=== PATIENT | male | born 1985 | race African-American/Black ===

== ENCOUNTER 2021-08-15 09:30 | Emergency (ER) | payer MEDICAID ==
[~2021-08-15] VITALS: Ht 172.7 cm; Wt 72.5 kg
[2021-08-15 09:32] VITALS: BP 135/96
--- OUTSIDE RECORDS SUMMARY | 2021-08-15 10:32 | CCD ---
Author Author [facility] Address Unknown Phone Unavailable Support Name Relationship Address [place] [address] [place] [address] Re-disclosure Warning The records that you are about to access may contain information from federally-assisted alcohol or drug abuse programs. If such information is present, then the following federally mandated warning applies: This information has been disclosed to you from records protected by federal confidentiality rules (42 CFR part 2). The federal rules prohibit you from making any further disclosure of this information unless further disclosure is expressly permitted by the written consent of the person to whom it pertains or as otherwise permitted by 42 CFR part 2. A general authorization for the release of medical or other information is NOT sufficient for this purpose. The Federal rules restrict any use of the information to criminally investigate or prosecute any alcohol or drug abuse patient.The records that you are about to access may contain highly sensitive health information, the redisclosure of which is protected by Article 27-F of the [facility] Public Health law. If you continue you may have access to information: Regarding HIV / AIDS; Provided by facilities licensed or operated by the [facility] Office of Mental Health; or Provided by the [facility] Office for People With Developmental Disabilities. If such information is present, then the following [facility] mandated warning applies: This information has been disclosed to you from confidential records which are protected by state law. State law prohibits you from making any further disclosure of this information without the specific written consent of the person to whom it pertains, or as otherwise permitted by law. Any unauthorized further disclosure in violation of state law may result in a fine or nursing home sentence or both. A general authorization for the release of medical or other information is NOT sufficient authorization for further disc losure. Medications No Information Insurance Providers Payer name Policy type / Coverage type Policy ID Covered constitution party ID Covered constitution party's relationship to brooke Policy Brooke Plan Information [facility] [id number] [id number] Problems, Conditions, and Diagnoses No Information Surgeries/Procedures No Information Results No Information Social History No Information
[2021-08-15] MEDS ORDERED: GI COCKTAIL 50ML BTL(HYOSCYAMINE/MAALOX/LIDOCAINE VISCOUS)(1:3:1) PO ONE (11:20)
[2021-08-15] MEDS ORDERED: PANTOPRAZOLE 40MG VIAL (C9113 PER 1) IV ONE (11:20)
[2021-08-15] MEDS ORDERED: SUCRALFATE 1 GM TAB PO ONE (11:20)
--- NOTE | 2021-08-15 11:48 | REP ---
INDICATION: epigastric pain x 2 days. COMPARISON: None. FINDINGS: Supine and upright views of the abdomen show the intestinal gas pattern to be nonspecific. Gas and stool is seen throughout the colon within the rectosigmoid region. The organ silhouettes insofar as delineated appear unremarkable. There are possible calcifications seen superimposed over the right nephric silhouette. No abdominal calcific densities are seen within the abdomen or pelvis. The accompanying single frontal view of the chest shows no free subdiaphragmatic air, cardiomegaly, infiltrates or effusions. IMPRESSION: Nonspecific intestinal gas pattern. Possible right nephroliths. <Electronically signed by Sidney Garcia > 08/15/21 [id number]
[2021-08-15 11:54] LABS: BASO % 0.3 % (0.0-1.0); EOS # 0.2 10^3/uL (0.0-0.5); EOS % 2.6 % (0.0-3.0); HEMATOCRIT 44.9 % (42.0-52.0); HEMOGLOBIN 15.1 g/dl (13.5-17.5); LYMPH # 1.8 10^3/uL (1.5-5.0); LYMPH % 29.9 % (24.0-44.0); MEAN CORPUSCULAR HEMOGLOBIN 30.1 pg (27.0-33.0); MEAN CORPUSCULAR HGB CONC 33.6 g/dl (32.0-36.5); MEAN CORPUSCULAR VOLUME 89.4 fl (80.0-96.0); MONO # 0.5 10^3/uL (0.0-0.8); MONO % 8.2 % (2.0-8.0); NEUTROPHILS # 3.4 10^3/uL (1.5-8.5); NEUTROPHILS % 58.8 % (36.0-66.0); PLATELET COUNT, AUTOMATED 336 10^3/uL (150-450); RED BLOOD COUNT 5.02 10^6/uL (4.30-6.10); WHITE BLOOD COUNT 5.9 10^3/uL (4.0-10.0)
--- NOTE | 2021-08-15 12:15 | REP ---
INDICATION: epigastric pain x 2 days. COMPARISON: None. TECHNIQUE: Limited ultrasound evaluation of the abdomen was performed. FINDINGS: The liver is normal in size and echogenicity. The gallbladder is partially evacuated. The gallbladder wall measures 2 mm in thickness. Negative sonographic Shannon sign. Common bile duct measures 3 mm in diameter. The pancreas is unremarkable. The right kidney measures 9.3 x 5.4 x 4.4 cm and contains multiple cortical cysts as follows: Upper pole, 11 x 10 x 8 mm; upper pole, 11 x 10 x 10 mm; lower pole, 16 x 12 x 9 mm. IMPRESSION: 1. Limited evaluation of the gallbladder as the gallbladder was partially evacuated. 2. Benign cortical cysts, right kidney. <Electronically signed by Nazario Wells > 08/15/21 1216
[2021-08-15 12:27] LABS: ALBUMIN 4.3 GM/DL (3.2-5.2); ALT/SGPT 94 U/L (12-78); BILIRUBIN,DIRECT < 0.1 MG/DL (0.0-0.2); BILIRUBIN,TOTAL 0.3 MG/DL (0.2-1.0); BLOOD UREA NITROGEN 15 MG/DL (7-18); CARBON DIOXIDE LEVEL 26 MEQ/L (21-32); CHLORIDE LEVEL 108 MEQ/L (98-107); CREATININE FOR GFR 1.04 MG/DL (0.70-1.30); GLOMERULAR FILTRATION RATE > 60.0 (>60); GLUCOSE, FASTING 99 MG/DL (70-100); LIPASE 205 U/L (73-393); POTASSIUM SERUM 4.1 MEQ/L (3.5-5.1); SODIUM LEVEL 140 MEQ/L (136-145); TOTAL PROTEIN 7.5 GM/DL (6.4-8.2)
[2021-08-15] MEDS ORDERED: metroNIDAZOLE (FLAGYL) 500MG TABLET PO ONE (13:30)
[2021-08-15] MEDS ORDERED: OMEP40CA4 PO (13:31)
[2021-08-15 13:44] LABS: GC DNA AMPLIFICATION NEGATIVE (NEGATIVE)
== END 2021-08-15 14:05 | disposition home or self-care (01) ==
LOC: M ED 09:30
DX: R10.13 Epigastric pain (principal); R19.7 Diarrhea, unspecified; Z20.2 Contact with and (suspected) exposure to infections with a predominantly sexual mode of transmission; I10 Essential (primary) hypertension
CPT/HCPCS: 74021; 76705; 80048; 80076; 81001; 83690; 85025; 87491; 87591; 87661; 96374; 99283; C9113

== ENCOUNTER 2021-10-04 20:07 | Emergency (ER) | payer MEDICAID ==
[~2021-10-04] VITALS: Ht 172.7 cm; Wt 72.5 kg
[~2021-10-04 20:07] MED LIST: OMEP40CA4 PO
[2021-10-05 00:42] LABS: BASO % 0.4 % (0.0-1.0); EOS % 0.6 % (0.0-3.0); HEMATOCRIT 47.5 % (42.0-52.0); HEMOGLOBIN 15.6 g/dl (13.5-17.5); LYMPH # 0.8 10^3/uL (1.5-5.0); LYMPH % 15.3 % (24.0-44.0); MEAN CORPUSCULAR HEMOGLOBIN 29.3 pg (27.0-33.0); MEAN CORPUSCULAR HGB CONC 32.8 g/dl (32.0-36.5); MEAN CORPUSCULAR VOLUME 89.3 fl (80.0-96.0); MONO # 0.8 10^3/uL (0.0-0.8); MONO % 15.6 % (2.0-8.0); NEUTROPHILS # 3.6 10^3/uL (1.5-8.5); NEUTROPHILS % 67.9 % (36.0-66.0); PLATELET COUNT, AUTOMATED 199 10^3/uL (150-450); RED BLOOD COUNT 5.32 10^6/uL (4.30-6.10); WHITE BLOOD COUNT 5.2 10^3/uL (4.0-10.0)
[2021-10-05 01:11] LABS: ALBUMIN 4.5 GM/DL (3.2-5.2); ALT/SGPT 54 U/L (12-78); BILIRUBIN,DIRECT 0.2 MG/DL (0.0-0.2); BILIRUBIN,TOTAL 0.5 MG/DL (0.2-1.0); BLOOD UREA NITROGEN 11 MG/DL (7-18); CALCIUM LEVEL 9.8 MG/DL (8.5-10.1); CARBON DIOXIDE LEVEL 28 MEQ/L (21-32); CHLORIDE LEVEL 104 MEQ/L (98-107); CREATININE FOR GFR 1.16 MG/DL (0.70-1.30); GLOMERULAR FILTRATION RATE > 60.0 (>60); GLUCOSE, FASTING 99 MG/DL (70-100); LIPASE 124 U/L (73-393); SODIUM LEVEL 139 MEQ/L (136-145); TOTAL PROTEIN 7.9 GM/DL (6.4-8.2)
[2021-10-05] MEDS ORDERED: ACETAMINOPHEN 325 MG TAB PO ONE (06:15)
[2021-10-05 06:22] VITALS: BP 129/92
== END 2021-10-05 09:12 | disposition home or self-care (01) ==
LOC: M ED 20:07
DX: N20.0 Calculus of kidney (principal); N28.1 Cyst of kidney, acquired; J12.89 Other viral pneumonia; I10 Essential (primary) hypertension; J45.909 Unspecified asthma, uncomplicated; K21.9 Gastro-esophageal reflux disease without esophagitis; Z79.899 Other long term (current) drug therapy

== ENCOUNTER → 2021-11-20 | Outpatient (CLI) | payer MEDICAID, OTHER | LOC: M PLALAB 09:38 | PROVIDERS: ATTEND Physician Assistant | DX: N20.0 Calculus of kidney (principal) ==

== ENCOUNTER 2021-12-20 22:28 | Emergency (ER) | payer OTHER ==
[~2021-12-20] VITALS: Ht 172.7 cm; Wt 68.2 kg
[2021-12-21 02:10] VITALS: BP 124/72
== END 2021-12-21 04:00 | disposition home or self-care (01) ==
LOC: M ED 22:28
DX: R53.81 Other malaise (principal); R00.1 Bradycardia, unspecified

== ENCOUNTER 2022-02-25 08:05 | Emergency (ER) | payer BC, OTHER ==
[~2022-02-25] VITALS: Ht 172.7 cm; Wt 68.2 kg
[2022-02-25 08:06] VITALS: BP 123/86
[2022-02-25] MEDS ORDERED: ONDA4TAB6 PO (09:12)
== END 2022-02-25 09:20 | disposition home or self-care (01) ==
LOC: M ED 08:05
DX: J02.9 Acute pharyngitis, unspecified (principal); I10 Essential (primary) hypertension; J45.909 Unspecified asthma, uncomplicated; K21.9 Gastro-esophageal reflux disease without esophagitis

== ENCOUNTER → 2022-03-20 | Outpatient (CLI) | payer BC ==
[~2022-03-20] MED LIST changes: +ONDA4TAB6 PO
== END ==
LOC: M RAD 13:26
PROVIDERS: ATTEND Physician Assistant
DX: N20.0 Calculus of kidney (principal)

== ENCOUNTER 2022-06-11 07:00 | Emergency (ER) | payer BC ==
[~2022-06-11] VITALS: Ht 172.7 cm; Wt 68.2 kg
[2022-06-11] MEDS ORDERED: IBUPROFEN 800 MG TAB PO ONE (07:25)
[2022-06-11 09:23] VITALS: BP 141/107
== END 2022-06-11 09:15 | disposition home or self-care (01) ==
LOC: M ED 07:00
DX: S02.2XXA Fracture of nasal bones, initial encounter for closed fracture (principal); Y04.8XXA Assault by other bodily force, initial encounter; Y92.511 Restaurant or cafe as the place of occurrence of the external cause; I10 Essential (primary) hypertension; J45.909 Unspecified asthma, uncomplicated; K21.9 Gastro-esophageal reflux disease without esophagitis

== ENCOUNTER → 2022-08-05 | Outpatient (REF) | payer BC ==
[2022-08-05 15:15] LABS: GC DNA AMPLIFICATION NEGATIVE (NEGATIVE)
== END ==
LOC: M LAB REF 12:52
PROVIDERS: ATTEND Physician Assistant Medical
DX: Z11.3 Encounter for screening for infections with a predominantly sexual mode of transmission (principal)

== ENCOUNTER → 2022-08-14 | Outpatient (REF) | payer BC ==
[2022-08-14 18:20] LABS: GC DNA AMPLIFICATION NEGATIVE (NEGATIVE)
== END ==
LOC: M LAB REF 16:31
PROVIDERS: ATTEND Physician Assistant
DX: Z11.3 Encounter for screening for infections with a predominantly sexual mode of transmission (principal)

== ENCOUNTER 2022-08-31 05:45 | Emergency (ER) | payer BC ==
[~2022-08-31] VITALS: Ht 172.7 cm; Wt 71.1 kg
[2022-08-31 05:45] VITALS: BP 141/98
== END 2022-08-31 08:53 | disposition home or self-care (01) ==
LOC: M ED 05:45
DX: K52.9 Noninfective gastroenteritis and colitis, unspecified (principal); I10 Essential (primary) hypertension; J45.909 Unspecified asthma, uncomplicated; K21.9 Gastro-esophageal reflux disease without esophagitis; Z87.442 Personal history of urinary calculi

== ENCOUNTER → 2022-09-26 | Outpatient (REF) | payer BC ==
[~2022-09-26] MED LIST changes: +BENZ200C70 PO; +MUCI1TAB16 PO
[2022-09-27 10:53] LABS: GC DNA AMPLIFICATION NEGATIVE (NEGATIVE)
== END ==
LOC: M LAB REF 08:14
PROVIDERS: ATTEND Student in an Organized Health Care Education/Training Program
DX: R30.0 Dysuria (principal)

== ENCOUNTER 2022-09-30 03:30 | Emergency (ER) | payer BC ==
[~2022-09-30] VITALS: Ht 172.7 cm; Wt 68.2 kg
[2022-09-30 03:30] VITALS: BP 136/87
[~2022-09-30 03:30] MED LIST changes: -BENZ200C70 PO; -MUCI1TAB16 PO
[2022-09-30] MEDS ORDERED: MUCI1TAB16 PO (09:35)
[2022-09-30] MEDS ORDERED: BENZ200C70 PO (09:35)
[2022-09-30 11:23] LABS: GC DNA AMPLIFICATION NEGATIVE (NEGATIVE)
== END 2022-09-30 09:45 | disposition home or self-care (01) ==
LOC: M ED 03:30
DX: U07.1 COVID-19 (principal); R30.0 Dysuria; I10 Essential (primary) hypertension; J45.909 Unspecified asthma, uncomplicated; K21.9 Gastro-esophageal reflux disease without esophagitis; Z79.899 Other long term (current) drug therapy

== ENCOUNTER → 2022-10-30 | Outpatient (CLI) | payer BC ==
[~2022-10-30] MED LIST changes: +BENZ200C70 PO; +MUCI1TAB16 PO
== END ==
LOC: M PLAIMG 08:50
PROVIDERS: ATTEND Physician Assistant
DX: N23 Unspecified renal colic (principal)

== ENCOUNTER 2022-12-04 16:33 | Emergency (ER) | payer BC ==
[~2022-12-04] VITALS: Ht 172.7 cm; Wt 77.1 kg
[2022-12-04 16:34] VITALS: BP 133/85
[2022-12-04 19:05] LABS: GC DNA AMPLIFICATION NEGATIVE (NEGATIVE)
[2022-12-04] MEDS ORDERED: AMOX875T2 PO (20:59)
== END 2022-12-04 21:40 | disposition home or self-care (01) ==
LOC: M ED 16:33
DX: J01.90 Acute sinusitis, unspecified (principal); E86.0 Dehydration; Z87.442 Personal history of urinary calculi

== ENCOUNTER → 2022-12-11 | Outpatient (REF) | payer BC, MEDICAID ==
[~2022-12-11] MED LIST changes: +AMOX875T2 PO
[2022-12-11 14:46] LABS: ALBUMIN 3.9 G/DL (3.2-5.2); ALKALINE PHOSPHATASE 75 U/L (46-116); ALT/SGPT 36 U/L (7.0-40); AST/SGOT 42 U/L (<34); BILIRUBIN,TOTAL 0.3 MG/DL (0.3-1.2); BLOOD UREA NITROGEN 17 MG/DL (9-23); CALCIUM LEVEL 9.6 MG/DL (8.5-10.1); CARBON DIOXIDE LEVEL 28 MMOL/L (20-31); CHLORIDE LEVEL 105 MMOL/L (98-107); CHOLESTEROL LEVEL 109 MG/DL (<200); CHOLESTEROL RISK RATIO 2.85 (<5); CREATININE FOR GFR 1.09 MG/DL (0.70-1.30); GLOMERULAR FILTRATION RATE > 60.0 (>60); GLUCOSE, FASTING 90 MG/DL (60-100); HDL CHOLESTEROL 38.2 MG/DL (>40); NON-HDL-C 71 MG/DL; POTASSIUM SERUM 4.5 MMOL/L (3.5-5.1); SODIUM LEVEL 138 MMOL/L (136-145); THYROID STIMULATING HORMONE 1.438 uIU/ML (0.55-4.78)
[2022-12-11 15:41] LABS: HEMOGLOBIN A1c 5.7 % (4.0-6.0)
[2022-12-11 18:46] LABS: LDL CHOLESTEROL 61.2 MG/DL (<100); TRIGLYCERIDES LEVEL 48 MG/DL (<150)
== END ==
LOC: M LAB REF 13:48
PROVIDERS: ATTEND Family Medicine Addiction Medicine
DX: Z13.228 Encounter for screening for other metabolic disorders (principal)

== ENCOUNTER 2023-01-27 02:52 | Emergency (ER) | payer BC, MEDICAID ==
[~2023-01-27] VITALS: Ht 172.7 cm; Wt 73.2 kg
[2023-01-27] MEDS ORDERED: IBUP80TA PO (05:55)
[2023-01-27 06:05] VITALS: BP 138/86
== END 2023-01-27 06:07 | disposition home or self-care (01) ==
LOC: M ED 02:52
DX: S90.01XA Contusion of right ankle, initial encounter (principal); W23.0XXA Caught, crushed, jammed, or pinched between moving objects, initial encounter; Y99.0 Civilian activity done for income or pay

== ENCOUNTER → 2023-01-28 | Outpatient (CLI) | payer BC ==
[~2023-01-28] MED LIST changes: +IBUP80TA PO
== END ==
LOC: M PLAIMG 10:14
PROVIDERS: ATTEND Physician Assistant
DX: N20.0 Calculus of kidney (principal)

== ENCOUNTER 2023-02-13 19:16 | Observation (INO) | payer OTHER, BC ==
[~2023-02-13] VITALS: Ht 172.7 cm; Wt 71.5 kg
[2023-02-13] MEDS ORDERED: NS 1,000 ML IV ONE (19:45)
[2023-02-13] MEDS ORDERED: MORPHINE 4 MG/ML 1ML VIAL IV PRN ×2 (19:45→23:00)
[2023-02-13] MEDS ORDERED: ISOVUE-370 76% 100ML VIAL As Ordered ONE (19:50)
[2023-02-13] MEDS ORDERED: ONDANSETRON 4MG 2ML VIAL IV ONE (19:50)
[2023-02-13 20:12] LABS: BASO % 0.7 % (0.0-1.0); EOS # 0.2 10^3/uL (0.0-0.5); EOS % 5.5 % (0.0-3.0); HEMATOCRIT 44.5 % (42.0-52.0); HEMOGLOBIN 14.6 g/dl (13.5-17.5); LYMPH # 1.5 10^3/uL (1.5-5.0); LYMPH % 38.2 % (24.0-44.0); MEAN CORPUSCULAR HEMOGLOBIN 29.6 pg (27.0-33.0); MEAN CORPUSCULAR HGB CONC 32.8 g/dl (32.0-36.5); MEAN CORPUSCULAR VOLUME 90.1 fl (80.0-96.0); MONO # 0.4 10^3/uL (0.0-0.8); MONO % 8.7 % (2.0-8.0); NEUTROPHILS # 1.9 10^3/uL (1.5-8.5); NEUTROPHILS % 46.7 % (36.0-66.0); PLATELET COUNT, AUTOMATED 295 10^3/uL (150-450); RED BLOOD COUNT 4.94 10^6/uL (4.30-6.10)
[2023-02-13 20:22] LABS: INR 0.95; PROTHROMBIN TIME 12.9 SECONDS (12.5-14.5)
[2023-02-13 20:23] LABS: PARTIAL THROMBOPLASTIN TIME 30.3 SECONDS (24.8-34.2)
[2023-02-13 20:36] LABS: ETHYL ALCOHOL (ETHANOL) < 0.003 % (0.000-0.010)
[2023-02-13 20:37] LABS: AMYLASE 126 U/L (30-118); CPK CREATINE PHOSPHOKINASE 943 U/L (46-171); MB/CK RELATIVE INDEX 0.84 (< OR =4)
[2023-02-13 20:39] LABS: ALBUMIN 3.9 G/DL (3.2-5.2); ALKALINE PHOSPHATASE 81 U/L (46-116); ALT/SGPT 38 U/L (7.0-40); AST/SGOT 38 U/L (<34); BILIRUBIN,DIRECT 0.2 MG/DL (<0.4); TOTAL PROTEIN 6.7 G/DL (5.7-8.2)
[2023-02-13 20:44] LABS: RSV AMPLIFICATION NEGATIVE (NEGATIVE)
[2023-02-13 20:53] LABS: BILIRUBIN,TOTAL 0.4 MG/DL (0.3-1.2); LIPASE 55 U/L (12-53)
[2023-02-13 20:59] LABS: AMPHETAMINES LEVEL URINE NEGATIVE (NEGATIVE); BARBITURATES URINE NEGATIVE (NEGATIVE); BENZODIAZEPINES URINE NEGATIVE (NEGATIVE); COCAINE METABOLITE URINE NEGATIVE (NEGATIVE); PHENCYCLIDINE URINE NEGATIVE (NEGATIVE)
[2023-02-13 21:00] LABS: METHADONE URINE NEGATIVE (NEGATIVE); OPIATES URINE NEGATIVE (NEGATIVE)
[2023-02-13 21:11] LABS: CANNABINOIDS URINE POSITIVE (NEGATIVE)
[2023-02-13 22:04] LABS: CK-MB VALUE MASS 6.7 NG/ML (<3.6)
[2023-02-13 22:06] LABS: MB/CK RELATIVE INDEX 0.78 (< OR =4)
[2023-02-13] MEDS ORDERED: ONDANSETRON 4MG TAB PO PRN (23:00)
[2023-02-13] MEDS ORDERED: MORPHINE 2 MG/ML 1ML VIAL IV PRN (23:00)
[2023-02-13] MEDS ORDERED: IBUP1TAB7 PO (23:56)
[2023-02-14] VITALS (23 sets, daily range): BP systolic 119–140; BP diastolic 54–100; O2SAT 97–99
[2023-02-14] MEDS ORDERED: HOME MED LIST COMPLETE! XX SCH
[2023-02-14] MEDS: KETOROLAC 30 MG/ML 1ML VIAL IV SCH ×5 (01:41→23:56)
[2023-02-14] MEDS: NS 1,000 ML IV SCH ×4 (02:00→18:36)
[2023-02-14] MEDS: MORPHINE 4 MG/ML 1ML VIAL IV PRN ×2 (02:57→09:45)
[2023-02-14 06:18] LABS: HEMATOCRIT 42.9 % (42.0-52.0); MEAN CORPUSCULAR HEMOGLOBIN 29.9 pg (27.0-33.0); MEAN CORPUSCULAR HGB CONC 32.6 g/dl (32.0-36.5); MEAN CORPUSCULAR VOLUME 91.5 fl (80.0-96.0); PLATELET COUNT, AUTOMATED 280 10^3/uL (150-450); RED BLOOD COUNT 4.69 10^6/uL (4.30-6.10); WHITE BLOOD COUNT 4.4 10^3/uL (4.0-10.0)
[2023-02-14 06:44] LABS: CK-MB VALUE MASS 3.9 NG/ML (<3.6)
[2023-02-14 06:52] LABS: MB/CK RELATIVE INDEX 0.63 (< OR =4)
[2023-02-14] MEDS ORDERED: PERCOCET 5MG/325MG TAB PO PRN (11:55)
[2023-02-14] MEDS: PERCOCET 5MG/325MG TAB PO PRN (14:48)
[2023-02-14] MEDS: DOCUSATE SODIUM 100MG CAPSULE PO SCH (20:16)
[2023-02-15] VITALS (10 sets, daily range): BP systolic 124–161; BP diastolic 78–92; O2SAT 99
[2023-02-15] MEDS: NS 1,000 ML IV SCH ×3 (01:49→16:23)
[2023-02-15] MEDS: KETOROLAC 30 MG/ML 1ML VIAL IV SCH (05:29)
[2023-02-15 06:59] LABS: MB/CK RELATIVE INDEX 0.71 (< OR =4)
[2023-02-15] MEDS: DOCUSATE SODIUM 100MG CAPSULE PO SCH ×2 (08:35→19:45)
[2023-02-15] MEDS: PERCOCET 5MG/325MG TAB PO PRN ×2 (08:37→19:46)
[2023-02-15] MEDS: IBUPROFEN 600MG TAB PO PRN ×2 (12:01→18:22)
[2023-02-16] MEDS: NS 1,000 ML IV SCH (00:31)
[2023-02-16 00:41] VITALS: BP 132/89
[2023-02-16 04:57] VITALS: BP 137/96
[2023-02-16] MEDS: IBUPROFEN 600MG TAB PO PRN (07:05)
[2023-02-16 07:37] VITALS: BP 140/62
[2023-02-16] MEDS: DOCUSATE SODIUM 100MG CAPSULE PO SCH (08:21)
[2023-02-17 19:07] LABS: CK 1 (BB) 0 % (0); CK 2 (MB) 0 % (0-3); CK 3 (MM) 100 % (97-100); CK MACRO I PERCENT 0 % (Not Observed); CK MACRO II PERCENT 0 % (Not Observed); CK TOTAL 630 U/L (49-439)
== END 2023-02-16 10:04 | disposition home or self-care (01) ==
LOC: M ED 19:16 → EDBD 19:16 → M ED INP 19:17 → M PCU 02-14 01:45
PROVIDERS: ADMIT Surgery; ATTEND Surgery
DX: S20.212A Contusion of left front wall of thorax, initial encounter (principal); S26.91XA Contusion of heart, unspecified with or without hemopericardium, initial encounter; R20.0 Anesthesia of skin; R74.8 Abnormal levels of other serum enzymes; R07.9 Chest pain, unspecified; V43.52XA Car driver injured in collision with other type car in traffic accident, initial encounter; Y92.410 Unspecified street and highway as the place of occurrence of the external cause; I45.10 Unspecified right bundle-branch block; Z87.442 Personal history of urinary calculi; Z91.013 Allergy to seafood
CPT/HCPCS: 36415; 70450; 70486; 71045; 71260; 72125; 72131; 73030; 73610; 74177; 80047; 80076; 80307; 82077; 82150; 82550; 82552; 82553; 83605; 83690; 84484; 85025; 85027; 85610; 85730; 86850; 86900; 86901; 87631; 93005; 93041; 93306; 94760; 96361; 96374; 96375; 96376; 99285; J1885; J2405; Q9967

== ENCOUNTER 2023-02-19 21:49 | Emergency (ER) | payer OTHER, BC ==
[~2023-02-19] VITALS: Ht 172.7 cm; Wt 71.7 kg
[~2023-02-19 21:49] MED LIST changes: +IBUP1TAB7 PO
[2023-02-19 22:45] VITALS: BP 149/93
[2023-02-19] MEDS ORDERED: CYCLOBENZAPRINE 5MG TABLET PO ONE (23:05)
[2023-02-19] MEDS ORDERED: CYCL-707 PO (23:06)
== END 2023-02-19 23:44 | disposition home or self-care (01) ==
LOC: M ED 21:49
DX: M79.10 Myalgia, unspecified site (principal); I10 Essential (primary) hypertension; Z87.442 Personal history of urinary calculi

== ENCOUNTER 2023-06-12 04:17 | Emergency (ER) | payer BC, OTHER ==
[~2023-06-12] VITALS: Ht 175.3 cm; Wt 70.9 kg
[~2023-06-12 04:17] MED LIST changes: +CYCL-707 PO
[2023-06-12 04:19] VITALS: BP 138/95; TEMP 98.6; O2SAT 98
[2023-06-12 05:28] LABS: RSV AMPLIFICATION NEGATIVE (NEGATIVE)
[2023-06-12 06:18] LABS: GC DNA AMPLIFICATION NEGATIVE (NEGATIVE)
[2023-06-12] MEDS ORDERED: MUCI600T31 PO (09:02)
[2023-06-12] MEDS ORDERED: BENZ200C70 PO (09:02)
== END 2023-06-12 09:00 | disposition home or self-care (01) ==
LOC: M ED 04:17
DX: J06.9 Acute upper respiratory infection, unspecified (principal); R30.0 Dysuria; J45.909 Unspecified asthma, uncomplicated; K21.9 Gastro-esophageal reflux disease without esophagitis; M54.50 Low back pain, unspecified; Z91.013 Allergy to seafood; Z79.899 Other long term (current) drug therapy

== ENCOUNTER → 2023-07-30 | Outpatient (CLI) | payer BC ==
[~2023-07-30] MED LIST changes: +MUCI600T31 PO; +PYRI1TAB5 PO
== END ==
LOC: M PLAIMG 11:10
PROVIDERS: ATTEND Physician Assistant
DX: N20.0 Calculus of kidney (principal)

== ENCOUNTER 2023-09-19 07:48 | Observation (INO) | payer OTHER, BC ==
[~2023-09-19] VITALS: Ht 175.3 cm; Wt 75.3 kg
[~2023-09-19 07:48] MED LIST changes: +ACET-842 PO
[2023-09-19] MEDS ORDERED: KETOROLAC 30 MG/ML 1ML VIAL IV ONE (08:10)
[2023-09-19] MEDS ORDERED: KETO10TAB PO (08:45)
[2023-09-19] MEDS ORDERED: OXYC-517 PO (08:45)
[2023-09-19 08:53] LABS: BASO % 0.2 % (0.0-1.0); EOS # 0.1 10^3/uL (0.0-0.5); HEMATOCRIT 42.4 % (42.0-52.0); HEMOGLOBIN 14.2 g/dl (13.5-17.5); LYMPH # 2.4 10^3/uL (1.5-5.0); LYMPH % 39.4 % (24.0-44.0); MEAN CORPUSCULAR HEMOGLOBIN 30.3 pg (27.0-33.0); MEAN CORPUSCULAR HGB CONC 33.5 g/dl (32.0-36.5); MEAN CORPUSCULAR VOLUME 90.6 fl (80.0-96.0); MONO # 0.5 10^3/uL (0.0-0.8); MONO % 8.7 % (2.0-8.0); NEUTROPHILS % 50.5 % (36.0-66.0); PLATELET COUNT, AUTOMATED 233 10^3/uL (150-450); RED BLOOD COUNT 4.68 10^6/uL (4.30-6.10)
[2023-09-19 09:20] LABS: CK-MB VALUE MASS 1.4 NG/ML (<3.6); LIPASE 48 U/L (12-53)
[2023-09-19 09:22] LABS: ALKALINE PHOSPHATASE 55 U/L (46-116); ALT/SGPT 34 U/L (7.0-40); AST/SGOT 33 U/L (<34); BILIRUBIN,DIRECT 0.2 MG/DL (<0.4); BILIRUBIN,TOTAL 0.6 MG/DL (0.3-1.2); BLOOD UREA NITROGEN 18 MG/DL (9-23); CALCIUM LEVEL 9.1 MG/DL (8.5-10.1); CARBON DIOXIDE LEVEL 25 MMOL/L (20-31); CHLORIDE LEVEL 107 MMOL/L (98-107); CREATININE FOR GFR 1.02 MG/DL (0.70-1.30); GLOMERULAR FILTRATION RATE > 60.0 (>60); GLUCOSE, FASTING 98 MG/DL (60-100); POTASSIUM SERUM 4.4 MMOL/L (3.5-5.1); SODIUM LEVEL 140 MMOL/L (136-145); TOTAL PROTEIN 6.9 G/DL (5.7-8.2)
[2023-09-19 09:23] LABS: THYROID STIMULATING HORMONE 2.612 uIU/ML (0.55-4.78)
[2023-09-19 09:29] LABS: METHADONE URINE NEGATIVE (NEGATIVE); OPIATES URINE NEGATIVE (NEGATIVE); PHENCYCLIDINE URINE NEGATIVE (NEGATIVE)
[2023-09-19 09:30] LABS: AMPHETAMINES LEVEL URINE NEGATIVE (NEGATIVE); BARBITURATES URINE NEGATIVE (NEGATIVE); BENZODIAZEPINES URINE NEGATIVE (NEGATIVE); COCAINE METABOLITE URINE NEGATIVE (NEGATIVE)
[2023-09-19] MEDS ORDERED: SUCRALFATE SUSP 1GM/10ML UD PO ONE (09:35)
[2023-09-19 09:43] LABS: INR 1.08; PROTHROMBIN TIME 13.7 SECONDS (12.5-14.5)
[2023-09-19 09:44] LABS: CPK CREATINE PHOSPHOKINASE 739 U/L (46-171); MB/CK RELATIVE INDEX 0.18 (< OR =4)
[2023-09-19 09:44] LABS: CANNABINOIDS URINE POSITIVE (NEGATIVE)
[2023-09-19] MEDS ORDERED: ISOVUE-370 76% 100ML VIAL As Ordered ONE (09:44)
[2023-09-19] MEDS ORDERED: ASPIRIN 81MG CHEW TABLET PO ONE (09:45)
[2023-09-19 10:06] LABS: CK-MB VALUE MASS 1.2 NG/ML (<3.6)
[2023-09-19] MEDS: NITROGLYCERIN 0.4MG SUBL TABLET SL PRN (10:09)
[2023-09-19 10:14] LABS: MB/CK RELATIVE INDEX 0.16 (< OR =4)
[2023-09-19] MEDS ORDERED: MED REC IN PROGRESS XX SCH (10:55)
[2023-09-19] MEDS: MORPHINE 4 MG/ML 1ML VIAL IV PRN ×2 (11:08→11:53)
[2023-09-19] MEDS ORDERED: HOME MED LIST COMPLETE! XX SCH (11:10)
[2023-09-19 11:50] LABS: INR 1.06; PROTHROMBIN TIME 13.5 SECONDS (12.5-14.5)
[2023-09-19 11:51] LABS: PARTIAL THROMBOPLASTIN TIME 28.1 SECONDS (24.8-34.2)
[2023-09-19] MEDS ORDERED: MORPHINE 2 MG/ML 1ML VIAL IV PRN (12:20)
[2023-09-19] MEDS ORDERED: LABETALOL 100MG TAB PO SCH (12:20)
[2023-09-19] MEDS ORDERED: LABETALOL 100MG/20ML VIAL IV PRN (12:20)
[2023-09-19] MEDS ORDERED: hydrALAZINE 20MG/ML 1ML VIAL IV PRN (12:45)
[2023-09-19] MEDS: ENOXAPARIN 80MG/0.8ML SYRINGE (J1650 PER 10MG) SC SCH (13:15)
[2023-09-19] MEDS: ACETAMINOPHEN 500 MG TAB PO PRN (14:48)
[2023-09-19 17:25] VITALS: BP 151/102; TEMP 98; O2SAT 99
[2023-09-19 17:34] VITALS: BP 152/100
[2023-09-19 19:00] LABS: CK-MB VALUE MASS < 1.0 NG/ML (<3.6)
[2023-09-19 19:04] LABS: CPK CREATINE PHOSPHOKINASE 606 U/L (46-171); MB/CK RELATIVE INDEX 0.16 (< OR =4)
[2023-09-19 20:07] VITALS: BP 143/99; TEMP 98.3; O2SAT 98
[2023-09-19] MEDS: MORPHINE 2 MG/ML 1ML VIAL IV PRN (21:17)
[2023-09-19 23:46] VITALS: BP 127/82; TEMP 98; O2SAT 97
[2023-09-19 23:51] VITALS: BP 152/94; TEMP 97.4; O2SAT 99
[2023-09-20] MEDS: ACETAMINOPHEN 500 MG TAB PO PRN (00:18)
[2023-09-20] MEDS: NITROGLYCERIN 0.4MG SUBL TABLET SL PRN (00:24)
[2023-09-20] MEDS: ENOXAPARIN 80MG/0.8ML SYRINGE (J1650 PER 10MG) SC SCH ×2 (00:24→12:31)
[2023-09-20] MEDS: MORPHINE 2 MG/ML 1ML VIAL IV PRN ×2 (01:36→08:53)
[2023-09-20 02:52] LABS: CK-MB VALUE MASS 1.7 NG/ML (<3.6); MB/CK RELATIVE INDEX 0.34 (< OR =4)
[2023-09-20 03:44] VITALS: BP 126/82; TEMP 97.6; O2SAT 99
[2023-09-20 06:23] LABS: HEMATOCRIT 42.9 % (42.0-52.0); HEMOGLOBIN 14.3 g/dl (13.5-17.5); MEAN CORPUSCULAR HEMOGLOBIN 30.5 pg (27.0-33.0); MEAN CORPUSCULAR HGB CONC 33.3 g/dl (32.0-36.5); MEAN CORPUSCULAR VOLUME 91.5 fl (80.0-96.0); PLATELET COUNT, AUTOMATED 225 10^3/uL (150-450); RED BLOOD COUNT 4.69 10^6/uL (4.30-6.10); WHITE BLOOD COUNT 4.8 10^3/uL (4.0-10.0)
[2023-09-20 06:49] LABS: BLOOD UREA NITROGEN 14 MG/DL (9-23); CALCIUM LEVEL 9.2 MG/DL (8.5-10.1); CARBON DIOXIDE LEVEL 26 MMOL/L (20-31); CHLORIDE LEVEL 105 MMOL/L (98-107); CREATININE FOR GFR 1.01 MG/DL (0.70-1.30); GLOMERULAR FILTRATION RATE > 60.0 (>60); GLUCOSE, FASTING 100 MG/DL (60-100); SODIUM LEVEL 140 MMOL/L (136-145)
[2023-09-20 07:27] VITALS: BP 134/92; TEMP 97.9; O2SAT 98
[2023-09-20 11:40] LABS: MB/CK RELATIVE INDEX 0.22 (< OR =4)
[2023-09-20] MEDS: NORCO, ANEXSIA 5/325MG TABLET (HYDROcodone/ACETAMINOPHEN) PO PRN ×2 (12:32→18:37)
[2023-09-20 12:36] VITALS: BP 131/86; TEMP 98; O2SAT 97
[2023-09-20 15:49] VITALS: BP 131/85; TEMP 97.5; O2SAT 97
[2023-09-20 19:52] VITALS: BP 136/88; TEMP 97.8; O2SAT 98
[2023-09-20 23:48] VITALS: BP 129/83; TEMP 98.3; O2SAT 95
[2023-09-21] MEDS: ENOXAPARIN 80MG/0.8ML SYRINGE (J1650 PER 10MG) SC SCH (00:40)
[2023-09-21] MEDS: NORCO, ANEXSIA 5/325MG TABLET (HYDROcodone/ACETAMINOPHEN) PO PRN ×2 (00:41→09:18)
[2023-09-21 04:00] VITALS: BP 139/99; TEMP 97.8; O2SAT 96
[2023-09-21 06:26] LABS: HEMATOCRIT 43.8 % (42.0-52.0); HEMOGLOBIN 14.7 g/dl (13.5-17.5); MEAN CORPUSCULAR HEMOGLOBIN 30.2 pg (27.0-33.0); MEAN CORPUSCULAR HGB CONC 33.6 g/dl (32.0-36.5); MEAN CORPUSCULAR VOLUME 90.1 fl (80.0-96.0); PLATELET COUNT, AUTOMATED 231 10^3/uL (150-450); RED BLOOD COUNT 4.86 10^6/uL (4.30-6.10); WHITE BLOOD COUNT 4.7 10^3/uL (4.0-10.0)
[2023-09-21 06:53] LABS: BLOOD UREA NITROGEN 15 MG/DL (9-23); CARBON DIOXIDE LEVEL 27 MMOL/L (20-31); CHLORIDE LEVEL 105 MMOL/L (98-107); CREATININE FOR GFR 1.01 MG/DL (0.70-1.30); GLOMERULAR FILTRATION RATE > 60.0 (>60); GLUCOSE, FASTING 95 MG/DL (60-100); POTASSIUM SERUM 4.2 MMOL/L (3.5-5.1); SODIUM LEVEL 139 MMOL/L (136-145)
[2023-09-21 07:43] VITALS: BP 131/82; TEMP 97.3; O2SAT 96
[2023-09-21] MEDS ORDERED: BISACODYL 5MG TAB PO ONE (10:50)
[2023-09-21] MEDS: DOCUSATE SODIUM 100MG CAPSULE PO SCH ×2 (12:02→21:29)
[2023-09-21] MEDS: APIXABAN 5 MG TAB (ELIQUIS) PO SCH ×2 (13:26→21:29)
[2023-09-21 15:12] VITALS: BP 121/81; TEMP 97.9; O2SAT 100
[2023-09-21] MEDS ORDERED: ELIQ5TAB PO (16:45)
[2023-09-21 20:02] VITALS: BP 150/90; TEMP 97.8; O2SAT 98
[2023-09-22 03:43] VITALS: BP 136/87; TEMP 97.3; O2SAT 96
[2023-09-22] MEDS: NORCO, ANEXSIA 5/325MG TABLET (HYDROcodone/ACETAMINOPHEN) PO PRN ×2 (04:25)
[2023-09-22 06:30] LABS: HEMATOCRIT 45.3 % (42.0-52.0); HEMOGLOBIN 15.1 g/dl (13.5-17.5); MEAN CORPUSCULAR HEMOGLOBIN 29.7 pg (27.0-33.0); MEAN CORPUSCULAR HGB CONC 33.3 g/dl (32.0-36.5); PLATELET COUNT, AUTOMATED 260 10^3/uL (150-450); RED BLOOD COUNT 5.09 10^6/uL (4.30-6.10); WHITE BLOOD COUNT 4.9 10^3/uL (4.0-10.0)
[2023-09-22 06:50] LABS: BLOOD UREA NITROGEN 16 MG/DL (9-23); CALCIUM LEVEL 9.5 MG/DL (8.5-10.1); CARBON DIOXIDE LEVEL 25 MMOL/L (20-31); CHLORIDE LEVEL 106 MMOL/L (98-107); CREATININE FOR GFR 1.01 MG/DL (0.70-1.30); GLOMERULAR FILTRATION RATE > 60.0 (>60); GLUCOSE, FASTING 100 MG/DL (60-100); POTASSIUM SERUM 4.3 MMOL/L (3.5-5.1); SODIUM LEVEL 138 MMOL/L (136-145)
[2023-09-22 08:08] VITALS: BP 140/94; TEMP 97.6; O2SAT 97
[2023-09-22] MEDS ORDERED: LISI10TA22 PO (08:10)
[2023-09-22] MEDS ORDERED: ELIQ5TAB PO (08:10)
[2023-09-22] MEDS: APIXABAN 5 MG TAB (ELIQUIS) PO SCH (08:12)
[2023-09-22] MEDS: DOCUSATE SODIUM 100MG CAPSULE PO SCH (08:12)
[2023-09-22 08:13] VITALS: BP 140/94
[2023-09-24 14:11] LABS: ANTI THROMBIN 3 ANTIGEN IMMUNO 114 % (72-124); ANTI THROMBIN 3 FUNCT ACTIVITY 117 % (75-135); CARDIOLIPIN IGA ANTIBODY <9 APL U/mL (0-11); CARDIOLIPIN IGG ANTIBODY <9 GPL U/mL (0-14); CARDIOLIPIN IGM ANTIBODY <9 MPL U/mL (0-12); PHOSPHOLIPIDS LEVEL 185 mg/dL (127-261); PROTEIN C FUNCTIONAL ACTIVITY 130 % (73-180); PROTEIN S FUNCTIONAL ACTIVITY 130 % (63-140)
== END 2023-09-22 09:23 | disposition home or self-care (01) ==
LOC: M ED 07:48 → M ED INP 12:19 → ENRESERV 16:23 → M PCU 17:30
PROVIDERS: ADMIT Family Medicine; ATTEND Family Medicine
DX: I26.93 Single subsegmental thrombotic pulmonary embolism without acute cor pulmonale (principal); Z98.890 Other specified postprocedural states; I10 Essential (primary) hypertension; R74.8 Abnormal levels of other serum enzymes; R07.1 Chest pain on breathing; R20.2 Paresthesia of skin; I45.10 Unspecified right bundle-branch block; Z79.899 Other long term (current) drug therapy; Z91.013 Allergy to seafood; Z87.442 Personal history of urinary calculi; Z82.49 Family history of ischemic heart disease and other diseases of the circulatory system; Z80.8 Family history of malignant neoplasm of other organs or systems; Z80.7 Family history of other malignant neoplasms of lymphoid, hematopoietic and related tissues; Z87.828 Personal history of other (healed) physical injury and trauma
CPT/HCPCS: 36415; 71045; 71275; 80048; 80076; 80307; 81240; 82550; 82553; 83690; 83880; 84311; 84443; 84484; 85025; 85027; 85300; 85301; 85303; 85305; 85610; 85652; 85660; 85730; 86147; 87040; 87486; 87581; 87633; 87798; 93005; 93041; 93306; 93970; 94760; 96372; 96374; 96375; 96376; 99285; J1650; J1885; Q9967

== ENCOUNTER 2023-10-02 00:31 | Emergency (ER) | payer OTHER, BC ==
[~2023-10-02] VITALS: Ht 175.3 cm; Wt 74.8 kg
[~2023-10-02 00:31] MED LIST changes: +ELIQ5TAB PO; +KETO10TAB PO; +LISI10TA22 PO; +OXYC-517 PO
[2023-10-02 04:27] VITALS: BP 133/74; TEMP 97.2; O2SAT 97
== END 2023-10-02 04:31 | disposition home or self-care (01) ==
LOC: M ED 00:31
DX: G89.18 Other acute postprocedural pain (principal); M25.512 Pain in left shoulder; Z79.899 Other long term (current) drug therapy; Z91.013 Allergy to seafood

== ENCOUNTER → 2023-10-07 | Outpatient (CLI) | payer OTHER, BC | LOC: M RAD 13:20 | PROVIDERS: ATTEND Orthopaedic Surgery | DX: S46.812D Strain of other muscles, fascia and tendons at shoulder and upper arm level, left arm, subsequent encounter (principal) ==

== ENCOUNTER 2023-11-24 23:01 | Emergency (ER) | payer OTHER, BC ==
[2023-11-25 00:05] LABS: INR 1.26; PROTHROMBIN TIME 15.4 SECONDS (12.5-14.5)
[2023-11-25 00:06] LABS: PARTIAL THROMBOPLASTIN TIME 35.2 SECONDS (24.8-34.2)
[2023-11-25 00:14] LABS: BASO % 0.5 % (0.0-1.0); EOS # 0.1 10^3/uL (0.0-0.5); EOS % 1.4 % (0.0-3.0); HEMATOCRIT 44.9 % (42.0-52.0); LYMPH # 2.2 10^3/uL (1.5-5.0); MEAN CORPUSCULAR HEMOGLOBIN 29.9 pg (27.0-33.0); MEAN CORPUSCULAR HGB CONC 33.4 g/dl (32.0-36.5); MEAN CORPUSCULAR VOLUME 89.6 fl (80.0-96.0); MONO # 0.6 10^3/uL (0.0-0.8); MONO % 7.9 % (2.0-8.0); NEUTROPHILS # 4.7 10^3/uL (1.5-8.5); NEUTROPHILS % 60.6 % (36.0-66.0); PLATELET COUNT, AUTOMATED 290 10^3/uL (150-450); RED BLOOD COUNT 5.01 10^6/uL (4.30-6.10); WHITE BLOOD COUNT 7.7 10^3/uL (4.0-10.0)
[2023-11-25 00:32] LABS: CK-MB VALUE MASS 3.4 NG/ML (<3.6)
[2023-11-25 00:34] LABS: BLOOD UREA NITROGEN 18 MG/DL (9-23); CALCIUM LEVEL 9.4 MG/DL (8.5-10.1); CARBON DIOXIDE LEVEL 26 MMOL/L (20-31); CHLORIDE LEVEL 106 MMOL/L (98-107); CREATININE FOR GFR 1.35 MG/DL (0.70-1.30); GLOMERULAR FILTRATION RATE > 60.0 (>60); GLUCOSE, FASTING 114 MG/DL (60-100); SODIUM LEVEL 139 MMOL/L (136-145)
[2023-11-25 00:35] LABS: CPK CREATINE PHOSPHOKINASE 864 U/L (46-171); MB/CK RELATIVE INDEX 0.39 (< OR =4)
[2023-11-25] MEDS ORDERED: ISOVUE-370 76% 100ML VIAL As Ordered ONE (00:46)
[2023-11-25 01:28] LABS: CK-MB VALUE MASS 2.9 NG/ML (<3.6)
[2023-11-25 01:31] LABS: MB/CK RELATIVE INDEX 0.36 (< OR =4)
[2023-11-25 01:59] VITALS: TEMP 98.6
[2023-11-25] MEDS: MORPHINE 4 MG/ML 1ML VIAL IV ONE (01:59)
[2023-11-25 02:00] VITALS: BP 131/91; O2SAT 98
[2023-11-25] MEDS ORDERED: TRAM50TA2 PO (02:11)
== END 2023-11-25 02:24 | disposition home or self-care (01) ==
LOC: M ED 11-25 00:15
DX: R07.89 Other chest pain (principal); I10 Essential (primary) hypertension; Z86.711 Personal history of pulmonary embolism; Z79.01 Long term (current) use of anticoagulants; N20.0 Calculus of kidney; Z79.899 Other long term (current) drug therapy; Z91.013 Allergy to seafood
CPT/HCPCS: 71045; 71275; 80048; 82550; 82553; 84484; 85025; 85610; 85730; 93005; 93041; 94760; 96374; 99285; Q9967

== ENCOUNTER → 2023-11-26 | Outpatient (CLI) | payer BC ==
[~2023-11-26] MED LIST changes: +TRAM50TA2 PO
== END ==
LOC: M PLAIMG 10:48
PROVIDERS: ATTEND Physician Assistant
DX: N20.0 Calculus of kidney (principal)

== ENCOUNTER 2023-12-12 18:46 | Emergency (ER) | payer BC ==
[~2023-12-12] VITALS: Ht 175.3 cm; Wt 75.5 kg
[2023-12-12] MEDS ORDERED: POTA10808 (18:58)
[2023-12-12 20:41] LABS: Trichomonas vaginalis (AMP) NOT DETECTED (NEGATIVE)
[2023-12-12 21:05] LABS: GC DNA AMPLIFICATION NEGATIVE (NEGATIVE)
[2023-12-12 21:59] VITALS: BP 138/70; TEMP 97; O2SAT 98
[2023-12-12] MEDS: AZITHROMYCIN 250MG TABLET PO ONE (23:25)
== END 2023-12-12 23:29 | disposition home or self-care (01) ==
LOC: M ED 18:46
DX: A74.9 Chlamydial infection, unspecified (principal); I10 Essential (primary) hypertension; K21.9 Gastro-esophageal reflux disease without esophagitis; A64 Unspecified sexually transmitted disease; Z91.013 Allergy to seafood; Z79.899 Other long term (current) drug therapy; Z79.2 Long term (current) use of antibiotics

== ENCOUNTER → 2024-01-05 | Outpatient (REF) | payer BC, OTHER ==
[~2024-01-05] MED LIST changes: +POTA10808
[2024-01-05 12:58] LABS: APPEARANCE, URINE CLEAR (CLEAR); BACTERIA, URINE AUTO NEGATIVE (NEGATIVE); BILIRUBIN, URINE AUTO NEGATIVE (NEGATIVE); BLOOD, URINE BLOOD NEGATIVE (NEGATIVE); COLOR, URINE YELLOW (YELLOW); GLUCOSE, URINE (UA) AUTO NEGATIVE (NEGATIVE); KETONE, URINE AUTO NEGATIVE (NEGATIVE); LEUKOCYTE ESTERASE, URINE AUTO NEGATIVE (NEGATIVE); MUCUS, URINE SMALL (NEGATIVE); NITRITE, URINE AUTO NEGATIVE (NEGATIVE); PROTEIN, URINE AUTO NEGATIVE (NEGATIVE); RBC, URINE AUTO 0 /HPF (0-3); SPECIFIC GRAVITY URINE AUTO 1.019 (1.002-1.035); SQUAMOUS EPITHELIAL CELL UR AU 0 /HPF (0-6); UROBILINOGEN, URINE AUTO 0.2 mg/dL (0.0-2.0); WBC, URINE AUTO 0 /HPF (0-3)
== END ==
LOC: M SMT 12:24
PROVIDERS: ATTEND Physician Assistant
DX: R10.2 Pelvic and perineal pain (principal)

== ENCOUNTER 2024-01-19 02:39 | Emergency (ER) | payer OTHER, BC ==
[~2024-01-19] VITALS: Ht 175.3 cm; Wt 76.1 kg
[2024-01-19 03:32] LABS: HEMATOCRIT 42.8 % (42.0-52.0); HEMOGLOBIN 13.9 g/dl (13.5-17.5); MEAN CORPUSCULAR HEMOGLOBIN 29.6 pg (27.0-33.0); MEAN CORPUSCULAR HGB CONC 32.5 g/dl (32.0-36.5); MEAN CORPUSCULAR VOLUME 91.1 fl (80.0-96.0); NEUTROPHILS % 59.3 % (36.0-66.0); PLATELET COUNT, AUTOMATED 262 10^3/uL (150-450); WHITE BLOOD COUNT 6.5 10^3/uL (4.0-10.0)
[2024-01-19 03:33] LABS: BASO % 0.5 % (0.0-1.0); EOS # 0.1 10^3/uL (0.0-0.5); EOS % 1.2 % (0.0-3.0); LYMPH # 2.1 10^3/uL (1.5-5.0); LYMPH % 32.8 % (24.0-44.0); MONO # 0.4 10^3/uL (0.0-0.8); NEUTROPHILS # 3.8 10^3/uL (1.5-8.5)
[2024-01-19 03:44] LABS: CK-MB VALUE MASS 10.7 NG/ML (<3.6)
[2024-01-19 03:46] LABS: BLOOD UREA NITROGEN 15 MG/DL (9-23); CALCIUM LEVEL 9.6 MG/DL (8.5-10.1); CARBON DIOXIDE LEVEL 29 MMOL/L (20-31); CHLORIDE LEVEL 106 MMOL/L (98-107); GLOMERULAR FILTRATION RATE > 60.0 (>60); GLUCOSE, FASTING 97 MG/DL (60-100); POTASSIUM SERUM 3.8 MMOL/L (3.5-5.1); SODIUM LEVEL 140 MMOL/L (136-145)
[2024-01-19 04:01] LABS: CPK CREATINE PHOSPHOKINASE 1687 U/L (46-171); MB/CK RELATIVE INDEX 0.63 (< OR =4)
[2024-01-19 04:33] LABS: LIPASE 44 U/L (12-53)
[2024-01-19 04:35] LABS: ALBUMIN 4.5 G/DL (3.2-5.2); ALKALINE PHOSPHATASE 72 U/L (46-116); ALT/SGPT 39 U/L (7.0-40); AST/SGOT 45 U/L (<34); BILIRUBIN,DIRECT 0.2 MG/DL (<0.4); BILIRUBIN,TOTAL 0.5 MG/DL (0.3-1.2); TOTAL PROTEIN 7.1 G/DL (5.7-8.2)
[2024-01-19 04:49] LABS: CK-MB VALUE MASS 9.6 NG/ML (<3.6)
[2024-01-19 05:07] LABS: MB/CK RELATIVE INDEX 0.6 (< OR =4)
[2024-01-19 06:45] VITALS: BP 127/85; TEMP 98.6; O2SAT 99
== END 2024-01-19 06:53 | disposition home or self-care (01) ==
LOC: M ED 02:39
DX: R07.9 Chest pain, unspecified (principal); R10.9 Unspecified abdominal pain; R00.1 Bradycardia, unspecified; I45.10 Unspecified right bundle-branch block; I10 Essential (primary) hypertension; Z91.013 Allergy to seafood; Z79.899 Other long term (current) drug therapy

== ENCOUNTER → 2024-01-30 | Outpatient (REF) | payer BC ==
[2024-01-30 18:37] LABS: BASO % 0.5 % (0.0-1.0); EOS # 0.1 10^3/uL (0.0-0.5); EOS % 2.7 % (0.0-3.0); HEMATOCRIT 45.4 % (42.0-52.0); HEMOGLOBIN 15.1 g/dl (13.5-17.5); LYMPH # 1.7 10^3/uL (1.5-5.0); MEAN CORPUSCULAR HGB CONC 33.3 g/dl (32.0-36.5); MEAN CORPUSCULAR VOLUME 90.3 fl (80.0-96.0); MONO # 0.5 10^3/uL (0.0-0.8); MONO % 11.4 % (2.0-8.0); NEUTROPHILS # 1.8 10^3/uL (1.5-8.5); NEUTROPHILS % 43.4 % (36.0-66.0); PLATELET COUNT, AUTOMATED 323 10^3/uL (150-450); RED BLOOD COUNT 5.03 10^6/uL (4.30-6.10); WHITE BLOOD COUNT 4.1 10^3/uL (4.0-10.0)
[2024-01-30 18:58] LABS: BLOOD UREA NITROGEN 14 MG/DL (9-23); CALCIUM LEVEL 9.8 MG/DL (8.5-10.1); CARBON DIOXIDE LEVEL 25 MMOL/L (20-31); CHLORIDE LEVEL 102 MMOL/L (98-107); CREATININE FOR GFR 1.13 MG/DL (0.70-1.30); GLOMERULAR FILTRATION RATE > 60.0 (>60); GLUCOSE, FASTING 98 MG/DL (60-100); POTASSIUM SERUM 4.6 MMOL/L (3.5-5.1); SODIUM LEVEL 135 MMOL/L (136-145)
[2024-01-30 19:30] LABS: HIV 1&2 SCREEN NEGATIVE (NEGATIVE)
[2024-01-30 19:38] LABS: HEPATITIS C VIRUS ABY INDEX < 0.02 INDEX (<0.8)
[2024-01-30 19:55] LABS: Trichomonas vaginalis (AMP) NOT DETECTED (NEGATIVE)
[2024-01-30 20:19] LABS: GC DNA AMPLIFICATION NEGATIVE (NEGATIVE)
== END ==
LOC: M LAB REF 16:36
PROVIDERS: ATTEND Family Medicine Addiction Medicine
DX: Z86.19 Personal history of other infectious and parasitic diseases (principal); A74.9 Chlamydial infection, unspecified

== ENCOUNTER 2024-02-09 18:58 | Emergency (ER) | payer OTHER, BC ==
[~2024-02-09] VITALS: Ht 175.3 cm; Wt 72.6 kg
[2024-02-09] MEDS: LIDOCAINE 5% (LIDODERM) PATCH TD ONE (22:41)
[2024-02-09] MEDS: diazePAM 5MG TABLET PO ONE (22:41)
[2024-02-09] MEDS: KETOROLAC 30 MG/ML 1ML VIAL IM ONE (22:42)
[2024-02-10] MEDS ORDERED: ACET-897 PO (00:08)
[2024-02-10] MEDS ORDERED: LIDO5DIS41 TD (00:08)
[2024-02-10] MEDS ORDERED: METH-1164 PO (00:08)
[2024-02-10 00:16] VITALS: BP 159/82; TEMP 97.9; O2SAT 100
== END 2024-02-10 00:20 | disposition home or self-care (01) ==
LOC: M ED 18:58
DX: M62.830 Muscle spasm of back (principal); M62.838 Other muscle spasm; Z86.711 Personal history of pulmonary embolism; Z79.01 Long term (current) use of anticoagulants; Z79.899 Other long term (current) drug therapy; Z91.013 Allergy to seafood
CPT/HCPCS: 96372; 99283; J1885

== ENCOUNTER → 2024-02-13 | Outpatient (CLI) | payer BC ==
[~2024-02-13] MED LIST changes: +ACET-897 PO; +LIDO5DIS41 TD; +METH-1164 PO
[2024-02-13 12:14] LABS: HEMATOCRIT 45.6 % (42.0-52.0); HEMOGLOBIN 14.9 g/dl (13.5-17.5); MEAN CORPUSCULAR HEMOGLOBIN 30.3 pg (27.0-33.0); MEAN CORPUSCULAR HGB CONC 32.7 g/dl (32.0-36.5); MEAN CORPUSCULAR VOLUME 92.9 fl (80.0-96.0); PLATELET COUNT, AUTOMATED 291 10^3/uL (150-450); RED BLOOD COUNT 4.91 10^6/uL (4.30-6.10); WHITE BLOOD COUNT 4.2 10^3/uL (4.0-10.0)
[2024-02-13 12:34] LABS: BLOOD UREA NITROGEN 18 MG/DL (9-23); CALCIUM LEVEL 9.6 MG/DL (8.5-10.1); CARBON DIOXIDE LEVEL 30 MMOL/L (20-31); CHLORIDE LEVEL 103 MMOL/L (98-107); CREATININE FOR GFR 1.12 MG/DL (0.70-1.30); GLOMERULAR FILTRATION RATE > 60.0 (>60); GLUCOSE, FASTING 95 MG/DL (60-100); POTASSIUM SERUM 4.7 MMOL/L (3.5-5.1); SODIUM LEVEL 137 MMOL/L (136-145)
== END ==
LOC: M PLALAB 10:44
PROVIDERS: ATTEND Physician Assistant
DX: Z01.818 Encounter for other preprocedural examination (principal)

== ENCOUNTER → 2024-02-13 | Outpatient (CLI) | payer BC ==
[2024-02-13 12:32] LABS: CHOLESTEROL RISK RATIO 3.3 (<5); HDL CHOLESTEROL 45.4 MG/DL (>40); LDL CHOLESTEROL 92.4 MG/DL (<100); NON-HDL-C 104.6 MG/DL
== END ==
LOC: M PLALAB 10:41
PROVIDERS: ATTEND Internal Medicine Cardiovascular Disease
DX: R03.0 Elevated blood-pressure reading, without diagnosis of hypertension (principal); N20.0 Calculus of kidney

== ENCOUNTER → 2024-02-24 | Outpatient (CLI) | payer OTHER, BC | LOC: M PLALAB 10:14 | PROVIDERS: ATTEND Internal Medicine Hematology | DX: Z86.711 Personal history of pulmonary embolism (principal) ==

== ENCOUNTER 2024-03-11 10:17 | Day surgery (SDC) | payer BC ==
[~2024-03-11] VITALS: Ht 175.3 cm; Wt 69.2 kg
[~2024-03-11 10:17] MED LIST changes: +ONDA-282 PO; -ONDA4TAB6 PO
[2024-03-11] MEDS: LR 1,000 ML IV SCH (11:10)
[2024-03-11] MEDS ORDERED: ONDANSETRON 4MG 2ML VIAL As Ordered ONE (12:01)
[2024-03-11] MEDS ORDERED: propofoL 200 MG/20 ML VIAL As Ordered ONE (12:01)
[2024-03-11] MEDS ORDERED: LIDOCAINE 2% 100MG/5ML SDV (FOR ANES.) As Ordered ONE (12:01)
[2024-03-11] MEDS ORDERED: MIDAZOLAM INJ 2MG/2ML VIAL As Ordered ONE (12:02)
[2024-03-11] MEDS ORDERED: fentaNYL 100 MCG/2 ML INJECTION As Ordered ONE (12:03)
[2024-03-11] MEDS: ceFAZolin SOD 2 GM in IV 1 EA IV ONE (13:46)
[2024-03-11] MEDS ORDERED: ACETAMINOPHEN 1000MG 100ML IV BAG As Ordered ONE (13:51)
[2024-03-11] MEDS: ISOVUE-300 61% 100ML VIAL As Ordered ONE (14:00)
[2024-03-11] MEDS ORDERED: fentaNYL 100 MCG/2 ML INJECTION IV PRN (14:30)
[2024-03-11] MEDS ORDERED: LR 1,000 ML IV SCH (14:30)
[2024-03-11] MEDS ORDERED: diphenhydrAMINE 50MG/ML VIAL IV PRN (14:30)
[2024-03-11] MEDS ORDERED: MEPERIDINE 25 MG/ML 1ML VIAL IV PRN (14:30)
[2024-03-11] MEDS ORDERED: HYDR-3713 PO (14:35)
[2024-03-11] MEDS ORDERED: PYRI1TAB5 PO (14:35)
[2024-03-11] MEDS ORDERED: OXYB5TAB14 PO (14:35)
[2024-03-11] MEDS ORDERED: MACR100C43 PO (14:35)
[2024-03-11] MEDS: oxyCODONE 5MG TAB PO PRN (15:53)
[2024-03-11] MEDS: ONDANSETRON 4MG 2ML VIAL IV PRN (15:53)
[2024-03-11] MEDS: METOCLOPRAMIDE INJ 10MG/2ML VIAL IV PRN (16:01)
[2024-03-11 17:08] VITALS: BP 130/92; TEMP 97; O2SAT 100
[2024-03-13] MEDS ORDERED: OXYB5TAB14 PO (08:33)
[2024-03-13] MEDS ORDERED: LISI10TA22 PO (08:33)
[2024-03-13] MEDS ORDERED: MACR100C43 PO (08:33)
[2024-03-13] MEDS ORDERED: PHEN-501 PO ×2 (08:33)
[2024-03-13] MEDS ORDERED: HYDR-3713 PO (08:33)
[2024-03-13] MEDS ORDERED: COLA100C5 PO (08:41)
[2024-03-13] MEDS ORDERED: PERC5TAB12 PO (08:41)
[2024-03-13] MEDS ORDERED: MIRA3350 PO (08:41)
[2024-03-13] MEDS ORDERED: DULC10SU2 PR (08:41)
[2024-03-22 12:08] LABS: CA Oxalate Dihy 20 % (.); COMPONENT 1 Tan (.); Ca Ox Monohydrate 80 % (.)
== END 2024-03-11 17:15 | disposition home or self-care (01) ==
LOC: M SDC 10:17
PROVIDERS: ATTEND Urology
DX: N20.0 Calculus of kidney (principal); I10 Essential (primary) hypertension; Z79.899 Other long term (current) drug therapy; Z91.013 Allergy to seafood
CPT/HCPCS: 52356; 76000; 82365; C1769; C1894; C2617; J0131; J0690; J1100; J2250; J2405; J2765; J3010; Q9967

== ENCOUNTER 2024-05-28 04:50 | Emergency (ER) | payer BC ==
[~2024-05-28] VITALS: Ht 175.3 cm; Wt 70.9 kg
[~2024-05-28 04:50] MED LIST changes: +COLA100C5 PO; +DULC10SU2 PR; +HYDR-3713 PO; +MACR100C43 PO; +MIRA3350 PO; +OXYB5TAB14 PO; +PERC5TAB12 PO; +PHEN-501 PO
[2024-05-28 04:51] VITALS: TEMP 98
[2024-05-28] MEDS: LIDOCAINE 1% MDV 20ML VIAL SC ONE (07:10)
[2024-05-28] MEDS ORDERED: CEPH500C PO (08:48)
[2024-05-28] MEDS: CEPHALEXIN 500 MG CAP PO ONE (08:50)
[2024-05-28 09:11] VITALS: BP 150/91; O2SAT 98
== END 2024-05-28 09:08 | disposition home or self-care (01) ==
LOC: M ED 04:50
DX: L03.011 Cellulitis of right finger (principal); I10 Essential (primary) hypertension; K21.9 Gastro-esophageal reflux disease without esophagitis; F12.10 Cannabis abuse, uncomplicated; Z91.013 Allergy to seafood; Z79.2 Long term (current) use of antibiotics; Z79.899 Other long term (current) drug therapy
CPT/HCPCS: 73140; 96372; 99283; J0665

== ENCOUNTER 2024-05-30 17:52 | Emergency (ER) | payer BC ==
[~2024-05-30] VITALS: Ht 175.3 cm; Wt 73.6 kg
[~2024-05-30 17:52] MED LIST changes: +CEPH500C PO
[2024-05-30 20:08] VITALS: BP 138/82; TEMP 96.8; O2SAT 98
== END 2024-05-30 20:26 | disposition home or self-care (01) ==
LOC: M ED 17:52
DX: L03.011 Cellulitis of right finger (principal); I10 Essential (primary) hypertension; F12.10 Cannabis abuse, uncomplicated; F10.10 Alcohol abuse, uncomplicated; F17.290 Nicotine dependence, other tobacco product, uncomplicated; Z91.013 Allergy to seafood; Z79.2 Long term (current) use of antibiotics; Z79.899 Other long term (current) drug therapy

== ENCOUNTER 2024-06-02 10:29 | Emergency (ER) | payer BC ==
[~2024-06-02] VITALS: Ht 167.6 cm; Wt 71.8 kg
[~2024-06-02 10:29] MED LIST changes: -CLEO300C2 PO
[2024-06-02 14:05] VITALS: BP 145/93; TEMP 97.4; O2SAT 95
[2024-06-02] MEDS ORDERED: CLEO300C2 PO (14:44)
== END 2024-06-02 15:05 | disposition home or self-care (01) ==
LOC: M ED 10:29
DX: L03.011 Cellulitis of right finger (principal); I10 Essential (primary) hypertension; K21.9 Gastro-esophageal reflux disease without esophagitis; Z91.013 Allergy to seafood; Z79.811 Long term (current) use of aromatase inhibitors; Z79.2 Long term (current) use of antibiotics; Z79.899 Other long term (current) drug therapy

== ENCOUNTER → 2024-06-02 | Outpatient (REF) | payer BC ==
[~2024-06-02] MED LIST changes: +CLEO300C2 PO
[2024-06-02 14:32] LABS: Trichomonas vaginalis (AMP) NOT DETECTED (NEGATIVE)
[2024-06-02 14:43] LABS: HIV 1&2 SCREEN NEGATIVE (NEGATIVE)
[2024-06-02 14:51] LABS: HEPATITIS C VIRUS ABY INDEX 0.04 INDEX (<0.8)
[2024-06-02 14:56] LABS: GC DNA AMPLIFICATION NEGATIVE (NEGATIVE)
== END ==
LOC: M LAB REF 12:27
PROVIDERS: ATTEND Family Medicine Addiction Medicine
DX: Z11.3 Encounter for screening for infections with a predominantly sexual mode of transmission (principal)

== ENCOUNTER → 2024-06-18 | Outpatient (REF) | payer BC ==
[~2024-06-18] MED LIST changes: +CLEO300C2 PO
[2024-06-18 17:34] LABS: APPEARANCE, URINE CLEAR (CLEAR); BACTERIA, URINE AUTO NEGATIVE (NEGATIVE); BILIRUBIN, URINE AUTO NEGATIVE (NEGATIVE); BLOOD, URINE BLOOD NEGATIVE (NEGATIVE); COLOR, URINE YELLOW (YELLOW); GLUCOSE, URINE (UA) AUTO NEGATIVE (NEGATIVE); KETONE, URINE AUTO NEGATIVE (NEGATIVE); LEUKOCYTE ESTERASE, URINE AUTO NEGATIVE (NEGATIVE); NITRITE, URINE AUTO NEGATIVE (NEGATIVE); PROTEIN, URINE AUTO NEGATIVE (NEGATIVE); RBC, URINE AUTO 0 /HPF (0-3); SPECIFIC GRAVITY URINE AUTO 1.019 (1.002-1.035); SQUAMOUS EPITHELIAL CELL UR AU 0 /HPF (0-6); WBC, URINE AUTO 1 /HPF (0-3)
== END ==
LOC: M SMT 16:56
PROVIDERS: ATTEND Urology
DX: N20.0 Calculus of kidney (principal)

== ENCOUNTER 2024-07-16 19:15 | Emergency (ER) | payer BC ==
[~2024-07-16] VITALS: Ht 175.3 cm; Wt 71.0 kg
[2024-07-16 22:18] LABS: Trichomonas vaginalis (AMP) NOT DETECTED (NEGATIVE)
[2024-07-16 22:42] LABS: GC DNA AMPLIFICATION NEGATIVE (NEGATIVE)
[2024-07-16 23:34] VITALS: BP 164/90; TEMP 97.6; O2SAT 99
== END 2024-07-16 23:34 | disposition home or self-care (01) ==
LOC: M ED 19:15
DX: N48.29 Other inflammatory disorders of penis (principal); F12.10 Cannabis abuse, uncomplicated; Z91.013 Allergy to seafood; Z79.899 Other long term (current) drug therapy

== ENCOUNTER → 2024-07-16 | Outpatient (CLI) | payer BC | LOC: M RAD 15:53 | PROVIDERS: ATTEND Urology | DX: Z53.9 Procedure and treatment not carried out, unspecified reason (principal) ==

== ENCOUNTER → 2024-09-03 | Outpatient (CLI) | payer BC | LOC: M WHC 08:48 | PROVIDERS: ATTEND Urology | DX: N20.0 Calculus of kidney (principal); R10.2 Pelvic and perineal pain ==

== ENCOUNTER 2024-10-27 04:45 | Emergency (ER) | payer BC ==
[~2024-10-27 04:45] MED LIST changes: -POTA10808; +POTA10809
[2024-10-27 05:35] LABS: KETONE, URINE AUTO RFX NEGATIVE (NEGATIVE); LEUKOCYTE ESTERASE UR AUTO RFX NEGATIVE (NEGATIVE); NITRITE, URINE AUTO RFX NEGATIVE (NEGATIVE); RBC, URINE AUTO RFX 3 /HPF (0-3); SQUAM EPITHELIAL CELL UR AURFX 0 /HPF (0-6); WBC, URINE AUTO RFX 0 /HPF (0-3)
[2024-10-27 05:37] LABS: BASO % 0.3 % (0.0-1.0); EOS # 0.2 10^3/uL (0.0-0.5); EOS % 2.4 % (0.0-3.0); HEMATOCRIT 43.3 % (42.0-52.0); HEMOGLOBIN 14.8 g/dl (13.5-17.5); LYMPH # 2.5 10^3/uL (1.5-5.0); LYMPH % 38.8 % (24.0-44.0); MEAN CORPUSCULAR HEMOGLOBIN 30.5 pg (27.0-33.0); MEAN CORPUSCULAR HGB CONC 34.2 g/dl (32.0-36.5); MEAN CORPUSCULAR VOLUME 89.1 fl (80.0-96.0); MONO # 0.6 10^3/uL (0.0-0.8); NEUTROPHILS # 3.1 10^3/uL (1.5-8.5); NEUTROPHILS % 48.3 % (36.0-66.0); PLATELET COUNT, AUTOMATED 274 10^3/uL (150-450); RED BLOOD COUNT 4.86 10^6/uL (4.30-6.10); WHITE BLOOD COUNT 6.3 10^3/uL (4.0-10.0)
[2024-10-27 05:43] LABS: LIPASE 47 U/L (12-53)
[2024-10-27 05:45] LABS: ALBUMIN 4.4 G/DL (3.2-5.2); ALKALINE PHOSPHATASE 72 U/L (40-129); ALT/SGPT 73 U/L (7.0-40); AST/SGOT 67 U/L (<34); BILIRUBIN,DIRECT 0.2 MG/DL (<0.4); BILIRUBIN,TOTAL 0.5 MG/DL (0.3-1.2); BLOOD UREA NITROGEN 22 MG/DL (9-23); CALCIUM LEVEL 10.2 MG/DL (8.5-10.1); CARBON DIOXIDE LEVEL 26 MMOL/L (20-31); CHLORIDE LEVEL 104 MMOL/L (98-107); CREATININE FOR GFR 1.14 MG/DL (0.70-1.30); GLOMERULAR FILTRATION RATE > 60.0 (>60); GLUCOSE, FASTING 88 MG/DL (60-100); POTASSIUM SERUM 4.3 MMOL/L (3.5-5.1); SODIUM LEVEL 139 MMOL/L (136-145); TOTAL PROTEIN 7.9 G/DL (5.7-8.2)
[2024-10-27 06:21] LABS: Trichomonas vaginalis (AMP) NOT DETECTED (NEGATIVE)
[2024-10-27 06:46] LABS: GC DNA AMPLIFICATION NEGATIVE (NEGATIVE)
[2024-10-27] MEDS: NS (Normal Saline) 0.9% 1,000 ML IV ONE (07:58)
[2024-10-27] MEDS: KETOROLAC 30 MG/ML 1ML VIAL IV ONE (07:59)
[2024-10-27] MEDS ORDERED: ACET-907 PO (09:24)
[2024-10-27] MEDS ORDERED: IBUP-1022 PO (09:24)
[2024-10-27 09:37] VITALS: BP 139/64; TEMP 96.9; O2SAT 98
== END 2024-10-27 09:43 | disposition home or self-care (01) ==
LOC: M ED 04:45
DX: R10.9 Unspecified abdominal pain (principal); K21.9 Gastro-esophageal reflux disease without esophagitis; I10 Essential (primary) hypertension; F10.10 Alcohol abuse, uncomplicated; Z91.013 Allergy to seafood; Z79.1 Long term (current) use of non-steroidal anti-inflammatories (NSAID); Z79.899 Other long term (current) drug therapy
CPT/HCPCS: 74176; 76775; 80048; 80076; 81001; 83690; 85025; 87661; 87810; 87850; 96361; 96374; 99284; J1885

== ENCOUNTER → 2024-12-07 | Outpatient (CLI) | payer BC ==
[~2024-12-07] MED LIST changes: +ACET-907 PO; +IBUP-1022 PO
[2024-12-07 15:02] LABS: CALCIUM LEVEL 10.1 MG/DL (8.5-10.1)
[2024-12-07 15:03] LABS: PTH INTACT 47.3 PG/ML (18.5-88.0)
== END ==
LOC: M PLALAB 12:47
PROVIDERS: ATTEND Urology
DX: N20.0 Calculus of kidney (principal)

== ENCOUNTER 2025-04-27 04:15 | Emergency (ER) | payer BC ==
[~2025-04-27] VITALS: Ht 175.3 cm; Wt 68.2 kg
[~2025-04-27 04:15] MED LIST changes: +LIDO1ADH93 TD; -LIDO5DIS41 TD
[2025-04-27 04:53] LABS: PLATELET COUNT, AUTOMATED 303 10^3/uL (150-450)
[2025-04-27 05:18] LABS: CALCIUM LEVEL 10.1 MG/DL (8.5-10.1); CARBON DIOXIDE LEVEL 27.0 MMOL/L (20-31); CHLORIDE LEVEL 103.0 MMOL/L (98-107); CREATININE FOR GFR 1.35 MG/DL (0.70-1.30); GLOMERULAR FILTRATION RATE 68.5 (>60); POTASSIUM SERUM 4.4 MMOL/L (3.5-5.1); SODIUM LEVEL 143.0 MMOL/L (136-145)
[2025-04-27 05:29] LABS: CPK CREATINE PHOSPHOKINASE 1204.0 U/L (46-171)
[2025-04-27 05:52] LABS: CK-MB VALUE MASS 22.0 NG/ML (<3.6); MB/CK RELATIVE INDEX 1.82 (< OR =4)
[2025-04-27] MEDS ORDERED: HEPARIN SOD 5000 UNITS/ML 1 ML VIAL/SYRINGE IV PRN (06:25)
[2025-04-27] MEDS ORDERED: HEPARIN DRIP 25,000 UNITS in IV 1 EA IV SCH (06:25)
[2025-04-27] MEDS: ASPIRIN 325 MG TAB PO ONE (06:55)
[2025-04-27 06:59] LABS: CK-MB VALUE MASS 20.2 NG/ML (<3.6)
[2025-04-27 07:08] LABS: CPK CREATINE PHOSPHOKINASE 1268.0 U/L (46-171); MB/CK RELATIVE INDEX 1.59 (< OR =4)
[2025-04-27] MEDS ORDERED: ISOVUE-370 76% 100 ML VIAL As Ordered ONE (07:08)
[2025-04-27 07:30] LABS: PLATELET COUNT, AUTOMATED 285 10^3/uL (150-450)
[2025-04-27] MEDS: ACETAMINOPHEN *IV* 1,000 MG in IV 1 EA IV ONE (08:55)
[2025-04-27] MEDS ORDERED: PANTOPRAZOLE 40MG VIAL IV ONE (09:05)
[2025-04-27 09:40] VITALS: TEMP 96.1
[2025-04-27] MEDS ORDERED: NITROGLYCERIN 0.4 MG SUBL TABLET SL PRN (10:10)
[2025-04-27 12:00] VITALS: O2SAT 98
[2025-04-27 12:01] VITALS: BP 128/70
== END 2025-04-27 12:23 | disposition home or self-care (01) ==
LOC: M ED 04:15
DX: R07.9 Chest pain, unspecified (principal); I45.10 Unspecified right bundle-branch block; R00.1 Bradycardia, unspecified; K21.9 Gastro-esophageal reflux disease without esophagitis; I10 Essential (primary) hypertension; E78.5 Hyperlipidemia, unspecified; F10.10 Alcohol abuse, uncomplicated; Z86.711 Personal history of pulmonary embolism; Z91.013 Allergy to seafood; Z79.1 Long term (current) use of non-steroidal anti-inflammatories (NSAID); Z79.899 Other long term (current) drug therapy
CPT/HCPCS: 71275; 80048; 82550; 82553; 84484; 85027; 85730; 93005; 96374; 99285; J0131; Q9967

== ENCOUNTER → 2025-05-06 | Outpatient (CLI) | payer BC ==
[2025-05-06 11:20] LABS: ALT/SGPT 27.0 U/L (7.0-40); AST/SGOT 22.0 U/L (<34); CALCIUM LEVEL 9.6 MG/DL (8.5-10.1); CARBON DIOXIDE LEVEL 31.0 MMOL/L (20-31); CHLORIDE LEVEL 103.0 MMOL/L (98-107); CHOLESTEROL LEVEL 152.0 MG/DL (<200); CHOLESTEROL RISK RATIO 2.89 (<5); CREATININE FOR GFR 1.12 MG/DL (0.70-1.30); GLOMERULAR FILTRATION RATE 85.7 (>60); LDL CHOLESTEROL 86.9 MG/DL (<100); NON-HDL-C 99.5 MG/DL; POTASSIUM SERUM 4.4 MMOL/L (3.5-5.1); SODIUM LEVEL 142.0 MMOL/L (136-145); TRIGLYCERIDES LEVEL 63.0 MG/DL (<150)
== END ==
LOC: M PLALAB 08:38
PROVIDERS: ATTEND Internal Medicine Cardiovascular Disease
DX: R79.89 Other specified abnormal findings of blood chemistry (principal); R94.31 Abnormal electrocardiogram [ECG] [EKG]; R03.0 Elevated blood-pressure reading, without diagnosis of hypertension

== ENCOUNTER → 2025-09-20 | Outpatient (CLI) | payer BC ==
[~2025-09-20] MED LIST changes: -IBUP-1022 PO; +IBUP600T42 PO
[2025-09-20 13:44] LABS: APPEARANCE, URINE CLEAR (CLEAR); BACTERIA, URINE AUTO NEGATIVE (NEGATIVE); BILIRUBIN, URINE AUTO NEGATIVE (NEGATIVE); BLOOD, URINE BLOOD NEGATIVE (NEGATIVE); GLUCOSE, URINE (UA) AUTO NEGATIVE (NEGATIVE); KETONE, URINE AUTO NEGATIVE (NEGATIVE); LEUKOCYTE ESTERASE, URINE AUTO NEGATIVE (NEGATIVE); MUCUS, URINE SMALL (NEGATIVE); NITRITE, URINE AUTO NEGATIVE (NEGATIVE); PROTEIN, URINE AUTO NEGATIVE (NEGATIVE); RBC, URINE AUTO 0 /HPF (0-3); SPECIFIC GRAVITY URINE AUTO 1.027 (1.002-1.035); SQUAMOUS EPITHELIAL CELL UR AU 0 /HPF (0-6); UROBILINOGEN, URINE AUTO 0.2 mg/dL (0.0-2.0); WBC, URINE AUTO 0 /HPF (0-3)
== END ==
LOC: M PLAIMG 10:54
PROVIDERS: ATTEND Urology
DX: N20.0 Calculus of kidney (principal)